=== PATIENT | male | born 1985 ===

== ENCOUNTER 2017-05-20 11:37 | Emergency (ER) | payer BC, OTHER ==
--- NOTE | 2017-05-20 12:37 | EDM.PDOC ---
ED HPI GENERAL MEDICAL PROBLEM - General Chief Complaint: Upper Extremity Injury/Pain Stated Complaint: R SHOULDER INJURY Time Seen by Provider: 05/20/17 12:00 Source of Information: Reports: Patient History Limitations: Reports: No Limitations - History of Present Illness INITIAL COMMENTS - FREE TEXT/NARRATIVE: 32-year-old male presents for evaluation and treatment of injury to the right shoulder. Patient reports that he was skating earlier today. States that he fell. He landed on his left knee and his right shoulder. He is currently complaining of pain to the right shoulder and decreased range of motion to the right arm. He also has some minor discomfort to the left knee but states he is able to get up and skate. He has been walking on the knee with minimal discomfort. No numbness or tingling to the arm. No previous injury to the right arm. Patient is right-handed. No syncope or head trauma. Onset: Today Location: Reports: Upper Extremity, Right Right Shoulder Pain Score (Numeric/FACES): 3 - Related Data Allergies Allergy/AdvReac Type Severity Reaction Status Date / Time No Known Allergies Allergy Verified 05/20/17 11:47 Home Meds: Home Meds Acetaminophen/oxyCODONE [Percocet 325-5 MG] 1 tab PO Q6H PRN #12 tablet [Rx] Levothyroxine 175 mcg PO ACBRK 05/20/17 [History] Past Medical History Musculoskeletal History: Reports: Other (See Below) Other Musculoskeletal History: Right shoulder injury Endocrine/Metabolic History: Reports: Hypothyroidism Hematologic History: Reports: Other (See Below) Other Hematologic History: Calcium def. - Past Surgical History Endocrine Surgical History: Reports: Thyroidectomy Social & Family History - Family History Family Medical History: Noncontributory - Tobacco Use Smoking Status *Q: Never Smoker - Recreational Drug Use Recreational Drug Use: No Review of Systems - Review of Systems Review Of Systems: See Below Musculoskeletal: Reports: Shoulder Pain (right), Joint Pain (left knee) Neurological: Denies: Numbness, Syncope, Tingling, Difficulty Walking ED EXAM, GENERAL - Physical Exam Exam: See Below Exam Limited By: No Limitations General Appearance: Alert, WD/WN, No Apparent Distress Neck: Normal Inspection, Full Range of Motion. No: Tender Midline Respiratory/Chest: No Respiratory Distress, Lungs Clear, Normal Breath Sounds Cardiovascular: Normal Peripheral Pulses, Regular Rate, Rhythm, No Murmur Peripheral Pulses: 2+: Radial (L), Radial (R) Back Exam: Normal Inspection. No: Vertebral Tenderness Extremities: Normal Inspection, Normal Capillary Refill, Other (identifies pain to the right acromion; ROM testing deferred due to pain ) Neurological: Alert, Oriented, Normal Cognition Psychiatric: Normal Affect, Normal Mood Skin Exam: Warm, Dry, Normal Color Course - Vital Signs Last Recorded V/S: Last Vital Signs Temp 36.6 C 05/20/17 11:43 Pulse 82 05/20/17 11:43 Resp 16 05/20/17 11:43 BP 124/90 05/20/17 11:43 Pulse Ox 99 05/20/17 11:43 - Radiology Interpretation Free Text/Narrative:: Right shoulder: 3 views of the right shoulder were obtained. Comparison: No previous shoulder study. Several calcifications are seen within the humeral head compatible with bone islands. Acromioclavicular and glenohumeral joints appear unremarkable. On the Y scapular view there is a bone density being seen off the superior acromion process which is felt compatible with fracture. No additional fracture or other abnormality is seen. Impression: 1. Fracture within the superior acromion process. 2. No additional abnormality is seen other than incidental bone islands. - Re-Assessments/Exams Free Text/Narrative Re-Assessment/Exam: 05/20/17 14:05 Patient was offered medication for pain but declined to use in the ER. I reviewed the x-ray report with the patient. Case discussed with Dr. Quinones, [employer] relationship manager. Recommended a shoulder sling, ice and pain medication. I will have the patient follow-up with Dr. Ignacio in 7-10 days. Discharge instructions as documented. Departure - Departure Time of Disposition: 14:13 Disposition: Home, Self-Care 01 Condition: Fair Clinical Impression: Acromial process of scapula fracture - Discharge Information Prescriptions: Acetaminophen/oxyCODONE [Percocet 325-5 MG] 1 tab PO Q6H PRN #12 tablet PRN Reason: Pain Instructions: Scapular Fracture Referrals: Alma Garcia NP [Primary Care Provider] - Dieudonne Quinones MD [Physician] - Forms: ED Department Discharge, ED Return to Work/School Form Additional Instructions: percocet 1-2 tab PO every 4-6 hours as needed for pain. Do not drive or operative machinery within 12 hours of taking the Percocet. Percocet can be habit-forming, I recommend you take as few of these as needed to control your pain. Ice the shoulder 4 to 5 times a day for 10-15 minutes. Keep the arm and the shoulder sling at all times. Follow-up with orthopedics in 7-[address] Ignacio. Call to schedule with him. may work as long as your arm is in the shoulder sling and you do not require the Percocet for pain control. Note given for work. Please return to the ER if your symptoms change or worsen.
--- NOTE | 2017-05-20 13:30 | CR ---
Right shoulder: 3 views of the right shoulder were obtained. Comparison: No previous shoulder study. Several calcifications are seen within the humeral head compatible with bone islands. Acromioclavicular and glenohumeral joints appear unremarkable. On the Y scapular view there is a bone density being seen off the superior acromion process which is felt compatible with fracture. No additional fracture or other abnormality is seen. Impression: 1. Fracture within the superior acromion process. 2. No additional abnormality is seen other than incidental bone islands. Diagnostic code #3
== END 2017-05-20 14:25 | disposition home or self-care (01) ==
LOC: JD.ED 11:37
DX: S42.121A Displaced fracture of acromial process, right shoulder, initial encounter for closed fracture (principal); E03.9 Hypothyroidism, unspecified; V00.131A Fall from skateboard, initial encounter; Z79.899 Other long term (current) drug therapy
CPT/HCPCS: 73030-26-RT; 73030-RT; 99283; 99284